=== PATIENT | female | born 1960 | race Caucasian/White ===

== ENCOUNTER 2021-04-28 08:18 | Outpatient (CLI) | payer BC | END 2021-04-28 08:19 | disposition home or self-care (01) | LOC: BICMAMMO 08:18 | PROVIDERS: ATTEND Family Medicine | DX: Z13.820 Encounter for screening for osteoporosis (principal); Z78.0 Asymptomatic menopausal state; M81.0 Age-related osteoporosis without current pathological fracture; M85.852 Other specified disorders of bone density and structure, left thigh | CPT/HCPCS: 77080 ==